=== PATIENT | female | born 1960 | race African-American/Black ===

== ENCOUNTER 2023-04-06 15:22 | Inpatient (IN) | payer OTHER ==
[2023-04-06 17:05] VITALS: BMI 20.6
[2023-04-06] MEDS ORDERED: BENZONATATE 200 MG CAPSULE PO PRN (19:03)
[2023-04-06] MEDS ORDERED: LOPERAMIDE HCL 2 MG CAPSULE PO PRN (19:03)
[2023-04-06] MEDS ORDERED: MAG HYDROX/AL HYDROX/SIMETH 30 ML UNIT-DOSE CUP PO PRN (19:03)
[2023-04-06] MEDS ORDERED: IBUPROFEN 600 MG TABLET (FP) PO PRN (19:03)
[2023-04-06] MEDS ORDERED: IBUPROFEN 400 MG TABLET (FP) PO PRN (19:03)
[2023-04-06] MEDS ORDERED: BENZOCAINE/MENTHOL (CHLORASEPTIC ) LOZENGE MM PRN (19:03)
[2023-04-06] MEDS ORDERED: P-EPHED 60MG/TRIPROLIDI 2.5MG TABLET PO PRN (19:03)
[2023-04-06] MEDS ORDERED: POLYETHYLENE GLYCOL (HEALTHYLAX) 3350 17 GM PACKET PO PRN (19:03)
[2023-04-06] MEDS ORDERED: guaiFENesin 600 MG TABLET.ER (FP) PO PRN (19:03)
[2023-04-06] MEDS ORDERED: COLLOIDAL OATMEAL 1 BAR EACH TP PRN (19:03)
[2023-04-06] MEDS: MELATONIN 5 MG TABLETS PO SCH (22:07)
[2023-04-06] MEDS: THIAMINE HCL 100 MG TABLET (FP) PO SCH (22:07)
[2023-04-07] MEDS: PRENATAL VITAMINS W/ FOLIC ACID TABLET (FP) PO SCH (10:31)
[2023-04-07 10:55] LABS: POTASSIUM 3.7 mmol/L (3.5-5.1)
[2023-04-07 10:57] LABS: HEMOGLOBIN 12.2 GM/dL (10.7-15.3); MCH 25.9 pg (25.7-33.7); MCHC 32.1 g/dl (32.0-36.0); MEAN CELL VOLUME 80.9 fl (80-96); MEAN PLT VOLUME 8.6 fl (7.5-11.1); PLATELET COUNT 102 10^3/uL (134-434); RBC 4.69 M/mm3 (3.60-5.2); RDW 15.3 % (11.6-15.6); WHITE BLOOD COUNT 7.1 K/mm3 (4.0-10.0)
[2023-04-07 10:58] LABS: ALBUMIN 3.7 g/dl (3.4-5.0); BLOOD UREA NITROGEN 9.6 mg/dL (7-18)
[2023-04-07 11:03] LABS: TOT PROT 8.6 g/dl (6.4-8.2)
[2023-04-07 11:21] LABS: SYPHILIS W/ RPR CONF NON-REACTIVE (NONREACTIVE)
[2023-04-07 13:28] LABS: PH,URINE 5.5 (5.0-8.0); URINE APPEARANCE CLEAR; URINE BILIRUBIN NEGATIVE (NEGATIVE); URINE COLOR YELLOW; URINE GLUCOSE (UA) NEGATIVE (NEGATIVE); URINE KETONE NEGATIVE (NEGATIVE); URINE LEUK ESTERASE NEGATIVE (NEGATIVE); URINE NITRITE NEGATIVE (NEGATIVE); URINE PROTEIN TRACE (NEGATIVE); URINE UROBILINOGEN 0.2 mg/dL (0.2-1.0)
[2023-04-07] MEDS ORDERED: FERROUS GLUCONATE 324 MG TAB (FP) PO SCH (14:00)
[2023-04-07] MEDS: GABAPENTIN 100 MG CAPSULE PO SCH (21:18)
[2023-04-07] MEDS: THIAMINE HCL 100 MG TABLET (FP) PO SCH (21:18)
[2023-04-07] MEDS: MELATONIN 5 MG TABLETS PO SCH (21:18)
[2023-04-07] MEDS: MOMETASONE FUROATE 15 GM TP SCH (21:19)
[2023-04-08] MEDS: FERROUS SO4 325 MG TABLET (FP) PO SCH (09:57)
[2023-04-08] MEDS: NADOLOL 20 MG TABLET (FP) PO SCH (09:58)
[2023-04-08] MEDS: PRENATAL VITAMINS W/ FOLIC ACID TABLET (FP) PO SCH (09:58)
[2023-04-08] MEDS: MOMETASONE FUROATE 15 GM TP SCH ×2 (09:59→22:06)
[2023-04-08] MEDS: MELATONIN 5 MG TABLETS PO SCH (21:39)
[2023-04-08] MEDS: GABAPENTIN 100 MG CAPSULE PO SCH (21:39)
[2023-04-08] MEDS: THIAMINE HCL 100 MG TABLET (FP) PO SCH (21:39)
[2023-04-08] MEDS: hydrOXYzine PAMOATE 25 MG CAPSULE (FP) PO PRN (21:40)
[2023-04-09] MEDS: FERROUS SO4 325 MG TABLET (FP) PO SCH (10:21)
[2023-04-09] MEDS: PRENATAL VITAMINS W/ FOLIC ACID TABLET (FP) PO SCH (10:21)
[2023-04-09] MEDS: NADOLOL 20 MG TABLET (FP) PO SCH (10:22)
[2023-04-09] MEDS: MOMETASONE FUROATE 15 GM TP SCH ×2 (10:22→21:27)
[2023-04-09] MEDS: ACETAMINOPHEN 325 MG TABLET (FP) PO PRN (21:22)
[2023-04-09] MEDS: THIAMINE HCL 100 MG TABLET (FP) PO SCH (21:22)
[2023-04-09] MEDS: GABAPENTIN 100 MG CAPSULE PO SCH (21:22)
[2023-04-09] MEDS: MELATONIN 5 MG TABLETS PO SCH (21:26)
[2023-04-09] MEDS: hydrOXYzine PAMOATE 25 MG CAPSULE (FP) PO PRN (21:27)
[2023-04-10] MEDS: NADOLOL 20 MG TABLET (FP) PO SCH (10:04)
[2023-04-10] MEDS: PRENATAL VITAMINS W/ FOLIC ACID TABLET (FP) PO SCH (10:04)
[2023-04-10] MEDS: FERROUS SO4 325 MG TABLET (FP) PO SCH (10:04)
[2023-04-10] MEDS: MOMETASONE FUROATE 15 GM TP SCH ×2 (10:05→21:26)
[2023-04-10] MEDS: MELATONIN 5 MG TABLETS PO SCH (21:26)
[2023-04-10] MEDS: GABAPENTIN 100 MG CAPSULE PO SCH (21:26)
[2023-04-10] MEDS: THIAMINE HCL 100 MG TABLET (FP) PO SCH (21:26)
[2023-04-10] MEDS: ACETAMINOPHEN 325 MG TABLET (FP) PO PRN (22:43)
[2023-04-11] MEDS: PRENATAL VITAMINS W/ FOLIC ACID TABLET (FP) PO SCH (10:03)
[2023-04-11] MEDS: FERROUS SO4 325 MG TABLET (FP) PO SCH (10:03)
[2023-04-11] MEDS: NADOLOL 20 MG TABLET (FP) PO SCH (10:03)
[2023-04-11] MEDS: MOMETASONE FUROATE 15 GM TP SCH ×2 (10:04→21:43)
[2023-04-11] MEDS: NALTREXONE HCL 50 MG TABLET PO SCH (16:50)
[2023-04-11] MEDS: MELATONIN 5 MG TABLETS PO SCH (21:42)
[2023-04-11] MEDS: GABAPENTIN 100 MG CAPSULE PO SCH (21:42)
[2023-04-11] MEDS: THIAMINE HCL 100 MG TABLET (FP) PO SCH (21:42)
[2023-04-11] MEDS: MAGNESIUM HYDROX 2400MG/30ML ORAL SUSPENSION 30 ML CUP PO PRN (21:44)
[2023-04-12] MEDS: PRENATAL VITAMINS W/ FOLIC ACID TABLET (FP) PO SCH (10:03)
[2023-04-12] MEDS: NADOLOL 20 MG TABLET (FP) PO SCH (10:03)
[2023-04-12] MEDS: FERROUS SO4 325 MG TABLET (FP) PO SCH (10:03)
[2023-04-12] MEDS: NALTREXONE HCL 50 MG TABLET PO SCH (10:03)
[2023-04-12] MEDS: MOMETASONE FUROATE 15 GM TP SCH ×2 (10:05→21:29)
[2023-04-12] MEDS: hydrOXYzine PAMOATE 25 MG CAPSULE (FP) PO PRN (10:35)
[2023-04-12] MEDS: ACETAMINOPHEN 325 MG TABLET (FP) PO PRN (17:36)
[2023-04-12] MEDS: MELATONIN 5 MG TABLETS PO SCH (21:28)
[2023-04-12] MEDS: THIAMINE HCL 100 MG TABLET (FP) PO SCH (21:28)
[2023-04-12] MEDS: GABAPENTIN 100 MG CAPSULE PO SCH (21:28)
[2023-04-13] MEDS: ACETAMINOPHEN 325 MG TABLET (FP) PO PRN ×2 (08:59→17:44)
[2023-04-13] MEDS: NADOLOL 20 MG TABLET (FP) PO SCH (10:24)
[2023-04-13] MEDS: PRENATAL VITAMINS W/ FOLIC ACID TABLET (FP) PO SCH (10:24)
[2023-04-13] MEDS: FERROUS SO4 325 MG TABLET (FP) PO SCH (10:24)
[2023-04-13] MEDS: MOMETASONE FUROATE 15 GM TP SCH (10:25)
[2023-04-13] MEDS: GABAPENTIN 100 MG CAPSULE PO SCH (21:27)
[2023-04-13] MEDS: THIAMINE HCL 100 MG TABLET (FP) PO SCH (21:28)
[2023-04-13] MEDS: MELATONIN 5 MG TABLETS PO SCH (21:29)
[2023-04-13] MEDS: MAGNESIUM HYDROX 2400MG/30ML ORAL SUSPENSION 30 ML CUP PO PRN (21:29)
[2023-04-14] MEDS: MOMETASONE FUROATE 15 GM TP SCH ×3 (00:39→21:24)
[2023-04-14] MEDS: FERROUS SO4 325 MG TABLET (FP) PO SCH (10:12)
[2023-04-14] MEDS: NADOLOL 20 MG TABLET (FP) PO SCH (10:12)
[2023-04-14] MEDS: PRENATAL VITAMINS W/ FOLIC ACID TABLET (FP) PO SCH (10:12)
[2023-04-14] MEDS: ACETAMINOPHEN 325 MG TABLET (FP) PO PRN (15:58)
[2023-04-14] MEDS: MELATONIN 5 MG TABLETS PO SCH (21:22)
[2023-04-14] MEDS: MAGNESIUM HYDROX 2400MG/30ML ORAL SUSPENSION 30 ML CUP PO PRN (21:24)
[2023-04-14] MEDS: THIAMINE HCL 100 MG TABLET (FP) PO SCH (21:24)
[2023-04-14] MEDS: GABAPENTIN 100 MG CAPSULE PO SCH (21:24)
[2023-04-15] MEDS: PRENATAL VITAMINS W/ FOLIC ACID TABLET (FP) PO SCH (09:49)
[2023-04-15] MEDS: FERROUS SO4 325 MG TABLET (FP) PO SCH (09:49)
[2023-04-15] MEDS: NADOLOL 20 MG TABLET (FP) PO SCH (09:50)
[2023-04-15] MEDS: MOMETASONE FUROATE 15 GM TP SCH ×2 (09:51→21:21)
[2023-04-15] MEDS: ACETAMINOPHEN 325 MG TABLET (FP) PO PRN (18:39)
[2023-04-15] MEDS: MELATONIN 5 MG TABLETS PO SCH (21:21)
[2023-04-15] MEDS: THIAMINE HCL 100 MG TABLET (FP) PO SCH (21:21)
[2023-04-15] MEDS: GABAPENTIN 100 MG CAPSULE PO SCH (21:21)
[2023-04-16 10:24] LABS: BASO % 1.2 % (0-2.0); EOS % 2.8 % (0-4.5); HEMATOCRIT 39.1 % (32.4-45.2); HEMOGLOBIN 12.9 GM/dL (10.7-15.3); LYMPH % 41.8 % (8-40); MCH 26.3 pg (25.7-33.7); MEAN CELL VOLUME 79.6 fl (80-96); MEAN PLT VOLUME 9.1 fl (7.5-11.1); MONO % 6.1 % (3.8-10.2); NEUT % 48.1 % (42.8-82.8); PLATELET COUNT 152 10^3/uL (134-434); RBC 4.92 M/mm3 (3.60-5.2); WHITE BLOOD COUNT 6.1 K/mm3 (4.0-10.0)
[2023-04-16 10:30] LABS: INR 1.35 (0.83-1.09); PROTHROMBIN TIME (PATIENT) 15.6 SEC (9.7-13.0)
[2023-04-16] MEDS: MOMETASONE FUROATE 15 GM TP SCH (10:36)
[2023-04-16] MEDS: NADOLOL 20 MG TABLET (FP) PO SCH (10:36)
[2023-04-16] MEDS: FERROUS SO4 325 MG TABLET (FP) PO SCH (10:36)
[2023-04-16] MEDS: PRENATAL VITAMINS W/ FOLIC ACID TABLET (FP) PO SCH (10:36)
[2023-04-16 10:40] LABS: POTASSIUM 4.1 mmol/L (3.5-5.1)
[2023-04-16 10:44] LABS: CALCIUM 9.7 mg/dL (8.5-10.1)
[2023-04-16 10:45] LABS: ALBUMIN 3.6 g/dl (3.4-5.0); BLOOD UREA NITROGEN 5.7 mg/dL (7-18)
[2023-04-16 10:47] LABS: CREATININE 0.9 mg/dL (0.55-1.3)
[2023-04-16 10:49] LABS: BILIRUBIN,TOTAL 0.6 mg/dL (0.2-1); TOT PROT 8.7 g/dl (6.4-8.2)
[2023-04-16] MEDS: ACETAMINOPHEN 325 MG TABLET (FP) PO PRN (16:36)
[2023-04-16] MEDS: MAGNESIUM HYDROX 2400MG/30ML ORAL SUSPENSION 30 ML CUP PO PRN (21:28)
[2023-04-16] MEDS: GABAPENTIN 100 MG CAPSULE PO SCH (21:28)
[2023-04-16] MEDS: THIAMINE HCL 100 MG TABLET (FP) PO SCH (21:28)
[2023-04-16] MEDS: MELATONIN 5 MG TABLETS PO SCH (21:29)
[2023-04-17] MEDS: MOMETASONE FUROATE 15 GM TP SCH ×3 (00:01→23:13)
[2023-04-17] MEDS: FERROUS SO4 325 MG TABLET (FP) PO SCH (09:50)
[2023-04-17] MEDS: PRENATAL VITAMINS W/ FOLIC ACID TABLET (FP) PO SCH (09:50)
[2023-04-17] MEDS: NADOLOL 20 MG TABLET (FP) PO SCH (09:50)
[2023-04-17] MEDS: ACETAMINOPHEN 325 MG TABLET (FP) PO PRN (20:46)
[2023-04-17] MEDS: THIAMINE HCL 100 MG TABLET (FP) PO SCH (21:36)
[2023-04-17] MEDS: GABAPENTIN 100 MG CAPSULE PO SCH (21:36)
[2023-04-17] MEDS: MELATONIN 5 MG TABLETS PO SCH (21:37)
[2023-04-17 22:12] VITALS: RESP 18
[2023-04-18] MEDS: NADOLOL 20 MG TABLET (FP) PO SCH (09:42)
[2023-04-18] MEDS: FERROUS SO4 325 MG TABLET (FP) PO SCH (09:42)
[2023-04-18] MEDS: PRENATAL VITAMINS W/ FOLIC ACID TABLET (FP) PO SCH (09:42)
[2023-04-18] MEDS: MOMETASONE FUROATE 15 GM TP SCH ×2 (09:43→22:58)
[2023-04-18] MEDS: THIAMINE HCL 100 MG TABLET (FP) PO SCH (21:23)
[2023-04-18] MEDS: MELATONIN 5 MG TABLETS PO SCH (21:23)
[2023-04-18] MEDS: GABAPENTIN 100 MG CAPSULE PO SCH (21:23)
[2023-04-18] MEDS: ACETAMINOPHEN 325 MG TABLET (FP) PO PRN (21:24)
[2023-04-19 07:17] VITALS: TEMP 97.5
[2023-04-19] MEDS: PRENATAL VITAMINS W/ FOLIC ACID TABLET (FP) PO SCH (09:51)
[2023-04-19] MEDS: FERROUS SO4 325 MG TABLET (FP) PO SCH (09:51)
[2023-04-19] MEDS: NADOLOL 20 MG TABLET (FP) PO SCH (09:51)
[2023-04-19] MEDS: MOMETASONE FUROATE 15 GM TP SCH (10:14)
[2023-04-19] MEDS: ACETAMINOPHEN 325 MG TABLET (FP) PO PRN (21:43)
[2023-04-19] MEDS: GABAPENTIN 100 MG CAPSULE PO SCH (21:43)
[2023-04-19] MEDS: THIAMINE HCL 100 MG TABLET (FP) PO SCH (21:43)
[2023-04-19] MEDS: MELATONIN 5 MG TABLETS PO SCH (21:50)
[2023-04-20] MEDS: MOMETASONE FUROATE 15 GM TP SCH ×2 (00:33→09:48)
[2023-04-20 09:17] VITALS: BP 151/75; PULSE 73
[2023-04-20] MEDS: PRENATAL VITAMINS W/ FOLIC ACID TABLET (FP) PO SCH (09:47)
[2023-04-20] MEDS: FERROUS SO4 325 MG TABLET (FP) PO SCH (09:47)
[2023-04-20] MEDS: NADOLOL 20 MG TABLET (FP) PO SCH (09:48)
== END 2023-04-20 09:54 | disposition home or self-care (01) | DRG 772 ==
LOC: YASAS 15:22 → Y5N 21:45
PROVIDERS: ADMIT Allergy & Immunology; ATTEND Psychiatry & Neurology Pain Medicine
PROC: HZ42ZZZ Group Counseling for Substance Abuse Treatment, Cognitive-Behavioral (ICD-10-PCS; principal; 2023-04-06)
DX: F10.20 Alcohol dependence, uncomplicated (principal); F12.20 Cannabis dependence, uncomplicated; Z86.2 Personal history of diseases of the blood and blood-forming organs and certain disorders involving the immune mechanism; Z28.310 Unvaccinated for COVID-19; Z28.9 Immunization not carried out for unspecified reason
CPT/HCPCS: 36415; 71045-TC-FY; 80053; 81003; 82962; 83036; 85025; 85027; 85610; 86780; 86803; 87635; 93005; 93010